=== PATIENT | female | born 1980 | race African-American/Black ===

== ENCOUNTER 2016-10-27 19:44 | Emergency (ER) | payer OTHER | END 2016-10-27 19:54 | disposition home or self-care (01) | LOC: ER 19:44 | DX: S46.911A Strain of unspecified muscle, fascia and tendon at shoulder and upper arm level, right arm, initial encounter (principal); X58.XXXA Exposure to other specified factors, initial encounter | CPT/HCPCS: 73030-RT; 96372; 99283; J1885; J2800 ==